=== PATIENT | female | born 1955 | race African-American/Black ===

== ENCOUNTER → 2019-06-11 | Outpatient (CLI) | payer OTHER ==
[~2019-06-11] VITALS: Ht 165.1 cm; Wt 127.9 kg
[~2019-06-11] MED LIST: HYDROCHLOROTHIA25 M2 PO; LATUDA60 MG PO; TYLENOL WITH CO1 TA1 PO; VITAMIN D5000 UNI1 PO; XANAX 0.5 MG0.5 M1 PO
[2019-06-11 13:13] VITALS: BP 146/90
--- NOTE | 2019-06-11 13:34 | NUR ---
Pain Clinic Assessment: 1. History of Osteoarthritis: LOW BACK History of Rheumatoid Arthritis: DENIES 2. Height: 5 ft. 5 in. 165.1 cm. Weight: 282.0 lb. oz. 127.915 kg. Patient's BMI: 46.9 3. Vital Signs: BP: 146/90 Pulse: 77 Resp: 18 Temp: 02 Sat: 97 ECG Mon: 4. Pain Intensity: 8 5. Fall Risk: Dizziness: Y Needs help standing or walking: N Fallen in the last 3 months: N Fall risk comments: 6. Patient on Blood Thinner: None 7. History of Hypertension: Y 8. Opioid Therapy greater than 6 weeks: N Opiate Contract Signed: 9. Risk Assessment Tool Provided: 10. Functional Assessment Tool: 11. Recreational Drug Use: Current within past 3 mos Drug Type: MARIJUANA Tobacco Use: Current Every Day Smoker Tobacco Type: Cigarettes Amount or Packs/day: 1 How Many Years: 45 Alcohol Use: Yes Frequency: Quant:
--- NOTE | 2019-06-15 17:46 | HPC ---
[facility] [place] [address] PAIN MANAGEMENT CONSULTATION Name: FREDO GUTIERREZ Room #: REG HOWARD Ge.#: [id number] Admission: 06/11/19 Attend Phys: Garry Lai MD Discharge: Date of : 59 Report #: [id number] THIS REPORT FOR: //name// CC: Marlon Lai CHIEF COMPLAINT: Chronic low back pain radiating into the right hip. HISTORY OF PRESENT ILLNESS: The patient is a pleasant 63-year-old I am seeing today at the request of Dr. Marlon Schrader. She was seen previously in our clinic in 2009. At that time, Dr. Richards assessed her for a similar problem, chronic low back pain. Nine years ago, she was using marijuana and Dr. Richards told her that he was unable to provide her with any medication as a result of the use of that substance. Times are changing. Although she now reports that she rarely uses marijuana for recreation or for pain, [place] will soon be legalizing marijuana in the treatment of chronic pain and other conditions. We discussed that today. She doesnt deny occasional recreational use but cost keeps her from using it more regularly. It doesn't not have dramatic pain relieving benefits. She is here today because of pain across her lumbosacral segment. She has had chronic pain dating back to [id number]. Her pain is a constant, burning, aching sensation that she scores as a 7-8/10 and it is mostly in her low back and hips. She is quite inactive, does not exercise, continues to smoke a pack of cigarettes per day, which she has done since 1974. She has not completed physical therapy and has a diet that is high in inflammatory carbohydrates. CURRENT MEDICINES: Hydrochlorothiazide 25 mg, Latuda 60 mg daily, vitamin D3, alprazolam 1.0 mg 1/2 tablett p.r.n. hs for sleep and she has Tylenol #[address] Schrader for chronic pain. . Tylenol #3 does provide some relief for her and she is grateful for it. She reports that she takes no more than 2-3 tablets per day. She denies significant side effects from the medication. She reports carefully safeguarding the medication and is not receiving medication from anyone other than Dr. Schrader at this time. He is a new physician to her. I ran a PDMP for her and there is no other opioid being prescribed. Her last prescription from Dr. Schrader for 120 tablets equates to MME of 16 per PDMP. ALLERGIES: None listed. PAST MEDICAL HISTORY: She reports hypertension and history of hepatitis. She suffers from depression and PTSD and has seen a therapist for [place] [address] PAIN MANAGEMENT CONSULTATION Name: FREDO GUTIERREZ Room #: REG HOWARD Lerma#: [id number] Admission: 06/11/19 Attend Phys: Garry Lai MD Discharge: Date of : 59 Report #: [id number] continues to see a psychiatrist at [facility]. She complains of diffuse osteoarthritis including her low back and multiple joints, hips and knees. PREVIOUS SURGERIES: Include bilateral hip surgery, bilateral shoulder, hysterectomy and carpal tunnel surgery on the right. SOCIAL HISTORY: She is single. She smokes 1 pack of cigarettes a day and has done so since 1974. She drinks alcohol 2-3 times a week and while admitting to use of marijuana, states it's too expensive for regular use. She is unemployed wants to go to work. 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 Her pain while standing is a big concern. She currently is inactive most days. REVIEW OF SYSTEMS: Positive for weight gain and night sweats, fatigue, weakness and headaches. She complains of a sore mouth and dyspnea on exertion, shortness of breath. She has a history of wheezing likely secondary to her smoking. She has change in bowel movement with constipation periodically. She has nocturia, frequent headaches and reports memory loss, confusion, nervousness, depression and insomnia. PHYSICAL EXAMINATION: GENERAL: She was quite pleasant with a great sense of humor during her visit. She was engaging in conversation. She is 5 feet 5 inches, 282 pounds with a BMI of 46.9. VITAL SIGNS: Blood pressure 146/90, heart rate 77, respirations 18, O2 sat 97 on room air. Pain intensity 8/10. HEENT: Reveals pupils to be equal, round, reactive to light. NECK: Supple. She has mild tenderness posteriorly. CHEST: Reveals some decreased breath sounds in the bases and end expiration wheezing. CARDIAC: Rhythm is regular. There was no murmur. MUSCULOSKELETAL: Reveals tenderness in multiple joints including shoulders, low back, hips and knees. She moves independently from sitting to standing position. Her gait is nonantalgic. Range of motion of the lumbar spine is limited by weight and deconditioning. She has restrictions in both flexion and increased pain with back extension. Rotation [id number] movements also mildly cause pain. X-RAYS: The only x-rays I have available are 9 years old. It is an MRI ordered by pain specialist Dr. Ronnie Ortiz in 2009. It showed disk protrusions at L2-L3, L3-L4, L4-L5 and L5-S1. There was facet arthropathy as well and a retrolisthesis of L4 on L5 and L5-S1 9 years ago. IMPRESSION: 1. Chronic low back pain with diffuse spondylosis and degenerative disk disease. [facility] [address] [place] [address] PAIN MANAGEMENT CONSULTATION Name: FREDO GUTIERREZ Room #: REG HOWARD CarolinaJese#: [id number] Admission: 06/11/19 Attend Phys: Garry Lai MD Discharge: Date of : 59 Report #: [id number] 2. Obesity. 3. History of posttraumatic stress disorder and depression. 4. Hypertension. 5. Diffuse arthropathy. 6. History of opioid use intermittently dating back to at least 2009 when she was seen in our clinic by Dr. Yiim Richards. Currently wants to use Tylenol #3 for pain control. RECOMMENDATIONS: 1. Use of a mild opioid with MME of 16/day is reasonable and could be prescribed under CDC guidelines. The guideline allows for chronic use particularly at such low doses as long as good oversight and education is provided. We discussed this today at some length. The opioid crisis, overdose crisis and other addiction issues were reviewed. Marijuana for medicinal use is just around the corner in [place]. She has used it for years (in reviewing Dr. Richards's Note from 2009). Whether this disqualifies her from a valuable pain medication is a topic of debate and discussion. Her dose of codeine is quite low. Many other pain treatments have been provided. Even in 2009 she'd seen multiple pain doctors to provide her with injections. She's had dozens over the years and doesn't respond to them for any sort of meaningful pain relief. I am not interested in repeating expensive injections at this time given this history. I think it might be reasonable to provide her with tylenol #3 but tie its use to more important wellness goals. 1. Is she willing to seriously address tobacco addiction. 2. Will she attend exercise programs or other wellness movment programs available free through [facility]. 3. Does she REALLY want to work. If so this is very positive for diversion and distraction and is tied to wellness and happiness. We discussed it. If pain meds help her, they may be useful in that regard. 4. Wt. loss is more challenging. She's always been big and tobacco cessation has led to weight gain in the past. I will discuss her case further with Dr. Schrader for a plan going forward. No medications were ordered today but for now, I'd support the low dose codeine if it enhances mobility and employment goals. <ELECTRONICALLY SIGNED> By: Garry Lai MD 06/15/19 1746 0900 [id number] aGrry Lai MD /nt
== END ==
LOC: PAIN 06:55
DX: M54.5 Low back pain (principal); E66.9 Obesity, unspecified; I10 Essential (primary) hypertension; Z79.891 Long term (current) use of opiate analgesic